=== PATIENT | male | born 1965 | race Caucasian/White ===

== ENCOUNTER 2025-03-10 15:46 | Outpatient (AMB) | payer OTHER, SELFPAY ==
--- OUTSIDE RECORDS SUMMARY | 2025-03-10 15:52 | XMS_ITS | Clinical Summary ---
Author Organization [facility] [employer] Address [address] [place] [address] Phone Care Team Providers Care Russian Language Instructor Name Role Phone Chang Beard MD Primary Care Provider [phone] Allergies Active Allergy Reactions Criticality Noted Date Comments Cephalexin Nausea And Vomiting,Rash 08/15/2020 Rash/Dermatitis, Nausea and Vomiting Penicillins Nausea And Vomiting,Rash 08/15/2020 Rash/Dermatitis, Nausea and Vomiting Sulfamethoxazole Hives 02/15/2022 Hives/Urticaria Medications aspirin 81 mg EC tablet Take 1 tablet by mouth daily. Active carisoprodoL (SOMA) 350 mg tablet Take 350 mg by mouth 3 times daily as needed. Active LATANOPROST OPHT apply to the eye at bedtime. Active LORazepam (ATIVAN) 0.5 mg tablet Take 0.5 mg by mouth every 6 hours as needed. Active metoprolol succinate (TOPROL-XL) 50 mg 24 hr tablet TAKE 1 TABLET BY MOUTH EVERY DAY 08/13/2023 Active multivitamin (MULTIPLE VITAMINS ORAL) Multiple Vitamins-Mine rals (Multivitamin Men 50+) Tab Take by mouth daily. Active evolocumab (Repatha SureClick) 140 mg/mL pen injector injection INJECT 1 ML (140 MG TOTAL) UNDER THE SKIN EVERY 14 DAYS. 6 mL 2 12/29/2024 Active Active Problems Problem Noted Date Diagnosed Date Bleeding hemorrhoid 05/16/2022 Diverticulitis of large inte humphrey with abscess without bleeding 02/15/2022 Cervical disc herniation 07/24/2021 Hernia, inguinal, right 07/24/2021 Impingement syndrome of left shoulder 07/24/2021 Situational anxiety 07/24/2021 Tinea corporis 07/24/2021 Dyslipidemia 07/07/2021 Assessment & Plan (06/22/2024 6:49 PM EST): The patient has had marked hyperlipidemia with an extremely strongly positive family history for premature atherosclerosis and a personal history of highly symptomatic peripheral arterial disease requiring percutaneous revascularization. He has a significant risk of coronary artery disease and is understandably concerned about capacity for high-level activity as well as prognosis. The patient's brother recently had an exercise test which indicated the need for urgent coronary bypass grafting. Exercise testing will be arranged. Of note the patient did not tolerate statin therapy but has had a superb response to Repatha with LDL cholesterol levels in the single digits. Orders: Exercise nuclear stress test with myocardial perfusion; Future Primary hypertension 07/07/2021 Assessment & Plan (06/22/2024 6:49 PM EST): The patient has a history of systemic hypertension. He has generally had good control with metoprolol. Today's blood pressure is significantly elevated. This is unusual for the patient. I suggested he keep a blood pressure diary and discuss ongoing blood pressure management with his primary care provider or with us. Orders: ECG 12 lead PAD (peripheral artery disease) ([facility] V24) Assessment & Plan (06/22/2024 6:49 PM EST): The patient has had a total left sided SFA occlusion successfully treated in this practice with a drug-coated balloon intervention 3 years ago. He also had borderline disease of the right femoral artery. He had claudication which has responded favorably to an exercise program. Follow-up noninvasive evaluation is indicated. Orders: Vascular US duplex carotid bilateral; Future Vascular US duplex lower extremity arteries bilateral with ASHANTI; Future Exercise nuclear stress test with myocardial perfusion; Future Immunizations Name Administration Dates Next Due Hepatitis A Adult (Havrix; V aqta) 19yo and older 11/05/2019,10/08/2019 Hepatitis B (Ncnjglw-P-Ebubb , Recombivax HB-Adult) 19yo and older 04/07/2020,11/05/2019,10/08/2019 Tdap Tetanus diptheria acell ular pertussis (Boostrix; Adacel) 7yo and older 11/23/2020 Surgical History Surgery Date Site/Laterality Comments COLONOSCOPY 08/19/2019 - 08/18/2020 COLONOSCOPY 08/19/2010 - 08/18/2011 OTHER SURGICAL HISTORY 08/19/2019 - 08/18/2020 left SFA angioplasty w/ DCB Dr. Martinez ESOPHAGOGASTRODUODENOSCOPY 08/19/2019 - 08/18/2020 OTHER SURGICAL HISTORY hemorrhoidectomy Medical History Medical History Date Comments Hernia, inguinal Family history of colon cancer Cervical disc herniation PVD (peripheral vascular disease) with claudicat ion ([facility] V24) Situational anxiety HTN (hypertension) PAD (peripheral artery disease) ([facility] V24) Family History Medical History Relation Name Comments Asthma Brother Colon cancer Father Coronary artery disease Father Depression Father Heart attack Father Hyperlipidemia Father Hypertension Father Stroke Mother Coronary artery disease Paternal Grandfather Coronary artery disease Paternal Grandmother Migraines Sister Relation Name Status Comments Brother Father Mother Paternal Grandfather Paternal Grandmother Sister Social History Tobacco Use Types Packs/Day Years Used Date Smoking Tobacco: Former Smokeless Tobacco: Never Tobacco Cessation:Counseling Given: Not Answered Alcohol Use Standard Drinks/Week Comments Yes 6 (1 standard drink = 0.6 oz pur e alcohol) Sex and Gender Information Value Date Recorded Sex Assigned at Not on file Legal Sex Male 11:29 AM EST Gender Identity Not on file Sexual Orientation Not on file Obstetrics History Last Filed Vital Signs Vital Sign Reading Time Taken Comments Blood Pressure 142/92 06/22/2024 3:32 PM EST Pulse 78 06/22/2024 3:32 PM EST Temperature - - Respiratory Rate - - Oxygen Saturation 95% 06/22/2024 3:32 PM EST Inhaled Oxygen Concentration - - Weight 78 kg (172 lb) 06/22/2024 3:32 PM EST Height 172.7 cm (5' 8 ) 06/22/2024 3:32 PM EST Body Mass Index 26.15 06/22/2024 3:32 PM EST Plan of Treatment Upcoming Encounters Date Type Department Care Team (Late st Contact Info) Description 03/24/2025 8:30 AM EDT Ancillary Procedure [facility] [address] [place] [address] 05/13/2025 3:30 PM EDT Office Visit [facility] [address] [place] [id number] Manohar Gibson MD [address] [place] [address],[facility] [address] [place] [address] Health Maintenance Due Date Last Done Comments Pneumococcal Vaccine: 50+ Years (1 of 1 - PCV) 2014 Zoster Vaccines (1 of 2) 2014 Cholesterol Screening (Lipid Panel) 07/17/2022 Colorectal Cancer Screening: Colonoscopy 07/17/2022 HIV Screening 07/17/2022 Hepatitis C Screening 07/17/2022 Social Influencers of Health Screening 07/17/2022 Hypertension/CHF/CAD Annual BMP Blood Test 08/04/2022 COVID-19 Vaccine (4 - 2023-2 5 season) 2024 08/29/2021, 11/10/2020, 10/13/2020 RSV Immunization Adult Patients (1 - Risk 60-74 years 1-dose series) 2024 Depression Screening 08/19/2024 Influenza Vaccine (#1) 2025 4, 05/24/2011 DTaP,Tdap,and Td Vaccines (3 - Td or Tdap) 11/23/2030 11/23/2020, 05/24/2011 Hepatitis A Vaccines Aged Out 11/05/2019, 10/08/2019 No longer eligible based on patient's age to complete this topic Hepatitis B Vaccines Completed 04/07/2020, 11/05/2019, 10/08/2019 HIB Vaccines Aged Out No longer eligi ble based on patient's age to complete this topic HPV Vaccines Aged Out No longer eligi ble based on patient's age to complete this topic IPV Vaccines Aged Out No longer eligi ble based on patient's age to complete this topic MMR Vaccines Aged Out No longer eligi ble based on patient's age to complete this topic Meningococcal ACWY Vaccine Aged Out N o longer eligible based on patient's age to complete this topic Meningococcal B Vaccine Aged Out No l onger eligible based on patient's age to complete this topic RSV Immunization Patients Under 20 months Aged Out No longer eligible b ased on patient's age to complete this topic Varicella Vaccines Aged Out No longer eligible based on patient's age to complete this topic Insurance [facility] [place] [id number] Care Teams Russian Language Instructor Relationship Specialty Start Date End Date Chang Beard MD [facility] [address] [place] [address] PCP - General 10/21/19
--- NOTE | 2025-03-10 16:28 | MHC.OFFVIS ---
Intake Visit Reasons: 1 yr Allergies cephalexin (From Keflex) Allergy (Unknown, Verified 03/09/25 08:18) Unknown Penicillins Allergy (Unknown, Verified 03/09/25 08:18) Unknown sulfur dioxide Allergy (Unknown, Verified 03/09/25 08:18) Unknown HPI Comments Details: 59 years old man with hypertension and hyperlipidemia was seen with right-sided facial paresthesias in 2019. It was not significantly painful and medicine was not prescribed. Right-sided facial numbness is somewhat improved. No new symptom is appeared. No pain. [facility] Medical History (Updated 03/10/25 @ 16:29 by Abrahan Gimenez MD) Telangiectasia Trigeminal neuropathy HLD (hyperlipidemia) Hypertension Review of Systems Const Details: Constitutional:?No fever, chills, fatigue, weight loss, or night sweats. HEENT:?No headache, vision changes, hearing loss, nasal congestion, sore throat. Neurological:?No dizziness, syncope, seizures, numbness, tingling, weakness, tremors, memory loss. Psychiatric:?No anxiety, depression, mood swings, sleep disturbance, or hallucinations. Endocrine:?No heat/cold intolerance, polydipsia, polyuria, or hair/skin changes. Hematologic/Lymphatic:?No easy bruising, bleeding, or lymphadenopathy. Integumentary (Skin):?No rash, lesions, itching, or color changes. ? Physical Exam Neuro Other: Mental Status: Alert and oriented to person, place, and time. Normal attention. Normal spontaneous speech, fluency, and comprehension. No obvious issues with mood and memory. Affect is appropriate. Cranial Nerves: CN II: Visual rascon full to confrontation, visual acuity intact. CN III, IV, : Pupils equal, round, reactive to light and accommodation. Extraocular movements are normal. CN V: Facial sensation is normal. CN VII: Facial movements symmetrical. CN VIII: Hearing intact to bedside conversation is normal. CN IX, X: Palate elevates symmetrically. CN XI: Shoulder shrug and head turn symmetrical. CN XII: Tongue midline without atrophy or fasciculations. Extrapyramidal: Full facial expressions and blinking. No rigidity. Movements are appropriate with no tremor or abnormality. Speech: Normal; no dysarthria or tremor. Assessment & Plan Assessment & Plan (1) Trigeminal neuropathy: Comment: MRI brain [facility] at [facility] in February 2024: OK. 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 Recommendations: 1. Reassurance and education with as needed follow-up 2. Lyme serology Orders: Orders Lyme IgG/IgM w/reflex to WB Today G50.9 - Disorder of trigeminal nerve, unspecified Coding Level of Care Code Est Pt Level 4 (52405) Diagnoses Trigeminal neuropathy G50.9
== END 2025-03-10 16:36 | disposition home or self-care (01) ==
LOC: HO.HSM 15:47
PROVIDERS: Visit Provider Psychiatry & Neurology Neurology
DX: G50.9 Disorder of trigeminal nerve, unspecified (principal)
CPT/HCPCS: 99214

== ENCOUNTER 2025-03-10 15:46 | Outpatient (REF) | payer OTHER, SELFPAY ==
[2025-03-11 09:19] LABS: Lyme Abs Screen <0.90 index
== END 2025-03-10 15:47 | disposition home or self-care (01) ==
LOC: HO.LAB 15:46
PROVIDERS: PCP Family Medicine; Visit Provider Psychiatry & Neurology Neurology
DX: G50.9 Disorder of trigeminal nerve, unspecified (principal)
CPT/HCPCS: 36415; 86617; 86618